=== PATIENT | female | born 1960 | race Caucasian/White ===

== ENCOUNTER 2019-12-07 23:16 | Emergency (ER) | payer BC ==
[2019-12-07 23:47] LABS: #Basophils 0.1 thou/uL (0.0-0.2); #Eosinphils 0.2 thou/uL (0.0-0.7); #Lymphocytes 3.1 thou/uL (1.20-3.40); #Monocytes 0.7 thou/uL (0.11-0.59); #Neutrophils 3.2 thou/uL (1.40-6.50); %Basophils 1.3 % (0.0-1.0); %Eosinophils 3.4 % (0.0-10.0); %Monocytes 8.9 % (0.0-10.0); %Neutrophils 43.4 % (42.0-75.0); Mean Corpuscular HGB CONC 32.7 g/dL (32.0-36.0); Mean Corpuscular Hemoglobin 30.9 pg (27.0-31.0); Mean Corpuscular Volume 94.5 fL (78.0-98.0); Mean Platelet Volume 8.8 fL (7.4-10.4); Platelet Count 215 thou/uL (130-400); RBC Distribution Width 13.3 % (11.5-14.5); Red Blood Cell (RBC) Count 4.87 mill/uL (4.20-5.40); White Blood Cell (WBC) Count 7.3 thou/uL (4.8-10.8)
[2019-12-08 00:01] LABS: ALT (SGPT) 13 U/L (8-55); AST (SGOT) 15 U/L (5-34); Albumin 4.3 g/dL (3.5-5.0); Alkaline Phosphatase 157 U/L (40-110); Anion Gap 14 mmol/L (10-20); BUN (Urea Nitrogen) 13 mg/dL (9.8-20.1); Bilirubin, Total 0.5 mg/dL (0.2-1.2); Calc. Creatinine Clearance 0 mL/min (70-130); Calcium 9.2 mg/dL (7.8-10.44); Carbon Dioxide 26 mmol/L (22-29); Chloride 108 mmol/L (98-107); Estimated GFR-MDRD 57; Globulin 2.7 g/dL (2.4-3.5); Glucose 104 mg/dL (70-105); Potassium 3.7 mmol/L (3.5-5.1); Sodium 144 mmol/L (136-145)
[2019-12-08 00:10] LABS: Base Excess-Venous 0.9 mmol/L (-2.0 to 3.0); Bicarbonate (HCO3v) 27.9 mmol/L (22.0-28.0); CO2 Tension (PvCO2) 52.7 mmHg (40.0-50.0); Calcium, Ionized 1.21 mmol/L (See Comments:); Chloride 103 mmol/L (98-107); Hemoglobin - Calc 15.2 g/dL (12.0-16.0); Potassium 3.6 mmol/L (3.5-5.1); Sodium 141 mmol/L (138-145); T. Carbon Dioxide 29.6 mmol/L (22.0-28.0); vO2 Saturation-calc 45.1 % (60.0-85.0)
[2019-12-08] MEDS ORDERED: Albuterol Sulfate 2.5 mg/0.5 ml Neb ONE (00:36)
--- NOTE | 2019-12-08 06:42 | RAD ---
PORTABLE CHEST: Date: 12/07/2019 An AP portable film at 2331 hours is presented with no prior films available for comparison. The heart is normal in size. The lungs are mildly hyperexpanded but clear. No lobar infiltrates or ef fusions seen. There is no vascular congestion or edema. Slight streaking over the lung bases was felt to be due to the overlying soft tissues. IMPRESSION: No acute thoracic findings. POS: HOME
== END 2019-12-08 01:02 | disposition home or self-care (01) ==
LOC: BURERS 23:16
DX: J44.1 Chronic obstructive pulmonary disease with (acute) exacerbation (principal); Z87.891 Personal history of nicotine dependence; Z79.899 Other long term (current) drug therapy
CPT/HCPCS: 71045; 80053; 82330; 82803; 83880; 84484; 85025; 85379; 93005; 94640; 94760; J7611